=== PATIENT | female | born 1995 | race Caucasian/White ===

== ENCOUNTER 2022-07-11 22:42 | Emergency (ER) | payer OTHER, MEDICAID, SELFPAY ==
[2022-07-11 22:43] VITALS: BP 141/91; PULSE 108; RESP 20; TEMP 36.3; O2SAT 100; BMI 24.8
[2022-07-11 22:58] VITALS: BP 141/91; PULSE 108; RESP 20; TEMP 36.3; O2SAT 97
--- NOTE | 2022-07-11 23:20 | RAD_ITS ---
EXAM: XR CHEST, 2 VIEWS CLINICAL INDICATION: cough, sob TECHNIQUE: Frontal and lateral views of the chest. This report was created using Video[employer] report generation technology. COMPARISON: None. FINDINGS: LUNGS AND PLEURAL SPACES: Mild patchy infiltrate with air bronchograms noted within the retrocardiac portion of the left lower lobe, as noted on the frontal view of the chest, consistent with pneumonia. No acute infiltrates on the right. No pneumothorax. No effusion. Lungs are not hyperinflated. HEART: Unremarkable. Cardiac silhouette not enlarged. Normal pulmonary vasculature. MEDIASTINUM: Central airways and mediastinal contour are unremarkable. Trachea is midline. BONES/JOINTS: No acute osseous abnormality. SOFT TISSUES: Unremarkable. RAD/Chest PA and Lateral IMPRESSION: Mild pneumonia within the retrocardiac portion of the left lower lobe. Electronically Signed: Derrick Westfall MD at 23:46 EDT ,
--- NOTE | 2022-07-11 23:23 | ED.VIS.DYS ---
HPI History of Present Illness Chief Complaint: Cough Informant: patient Onset/Context/Timing Onset: Days (4) Context: gradual and onset Timing: Intermittent (Dyspnea) Worsened by: Coughing Relieved by: Nothing Associated Symptoms cough, fever, sore throat, chills and yellow sputum Chest Pain: Positive for None Narrative Narrative: Patient has been ill for 4 days with fevers up to 101.2, productive cough, she feels some crackles in her chest when she is breathing and coughing. Episodes of dyspnea mostly associated with coughing. Currently on doxycycline which she has been taking for about the past 4 days due to cystitis symptoms after feeling an antibiotic before that. She states the dysuria and frequency are much better now that she is on the doxycycline. Health at home today for COVID and it was negative. She is vaccinated previously for COVID and influenza. She does not have asthma or any other pulmonary problems. [facility] Medical History ADHD Chronic heart failure Insomnia POTS (postural orthostatic tachycardia syndrome) Home Medications dextroamphetamine-amphetamine 10 mg tablet 10 mg PO DAILY 07/11/22 [History Last Taken Unknown] dextroamphetamine-amphetamine ER 30 mg 24hr capsule,extend release (Adderall XR) 30 mg PO DAILY 07/11/22 [History Last Taken Unknown] doxycycline hyclate 100 mg capsule 100 mg PO BID 07/11/22 [History Last Taken Unknown] lamotrigine 150 mg tablet 150 mg PO QHS 07/11/22 [History Last Taken Unknown] midodrine 5 mg tablet 5 mg PO TID PRN PRN Hypotension 07/11/22 [History Last Taken Unknown] norethindrone 0.5 mg-ethinyl estradiol 35 mcg tablet (Nortrel) tab 07/11/22 [History Last Taken Unknown] quetiapine 100 mg tablet 100 mg PO QHS 07/11/22 [History Last Taken Unknown] albuterol sulfate 90 mcg/actuation aerosol inhaler (Ventolin HFA) 1 - 2 puff inhalation Q4H PRN PRN Wheezing ##1 07/12/22 [Rx Last Taken Unknown] benzonatate 100 mg capsule 200 mg PO TID PRN PRN Cough #20 CAPSULES 07/12/22 [Rx Last Taken Unknown] cefdinir 300 mg capsule 300 mg PO BID #14 caps 07/12/22 [Rx Last Taken Unknown] Allergy/AdvReac Type Severity Reaction Status Date / Time adhesive tape [tape] Allergy Rash Verified 07/11/22 22:47 dexamethasone Allergy Other Verified 07/11/22 22:47 latex Allergy Hives Verified 07/11/22 22:47 Social History Smoking Status: Never smoker ROS ROS ED Constitutional Constitutional ED: Reports chills, fever(s) and malaise ENT ENT ED: Reports nasal congestion, rhinorrhea and sore throat; Denies ear pain Cardiovascular Cardiovascular: Denies chest pain, leg edema or palpitations Respiratory/Chest Respiratory/Chest: Reports cough, dyspnea and sputum Gastrointestinal Gastrointestinal: Denies abdominal pain, diarrhea, nausea or vomiting Genitourinary Genitourinary ED: Reports dysuria and urinary frequency; Denies hematuria Musculoskeletal Musculoskeletal: Denies myalgias or neck pain Integumentary Denies abscess or rash Neurologic Neurologic: Denies headache(s), paresthesias or weakness Psychiatric Psychiatric: Denies depression or suicidal thoughts Endocrine Endocrinology: Denies polydipsia or polyuria Allergic/Immunologic Allergic/Immunologic ED: Denies mouth swelling or tongue swelling EXAM Physical Exam Const Vital Signs: 07/11/22 22:43 07/11/22 22:58 07/11/22 22:58 Temperature 97.3 F L 97.3 F L Temperature Source Temporal Oral Pulse Rate 108 H 108 H Respiratory Rate 20 H 20 H Respiratory Effort Respiratory Depth Respiratory Pattern Blood Pressure 141/91 H 141/91 H Blood Pressure Mean 107 107 Pulse Ox 100 97 Oxygen Delivery Method Room Air Room Air Room Air 07/11/22 23:53 07/11/22 23:53 Temperature Temperature Source Pulse Rate 117 H Respiratory Rate 20 H 22 H Respiratory Effort Normal Non-Labored Short of Breath Respiratory Depth Normal Respiratory Pattern Normal Tachypnea Blood Pressure Blood Pressure Mean Pulse Ox 100 Oxygen Delivery Method Room Air Positive well nourished and well developed General Appearance ED: well developed and NAD HEENT Reports moist mucous membranes normocephalic and atraumatic Throat: Negative for posterior oropharynx abnormal Eyes PERRL and EOMs intact bilaterally Neck no lymphadenopathy, supple and no meningeal signs Resp normal respiratory effort Resp Narrative: Rales and rhonchi left base otherwise clear throughout. Conversive in full sentences. Cardio no murmurs Cardio Narrative: mild tachycardia Rate: regular rate Rhythm: regular rhythm GI non-tender and non-distended Neuro oriented x3, CN's II-XII intact bilaterally, no sensory deficits noted and gait normal Sensorium / Orientation: alert Motor Exam: strength 5/5 throughout Psych mental status grossly normal Skin no wounds Lesions: no lesions Rashes: no rashes MDM MDM MDM Narrative Medical decision making narrative: 2 view chest x-ray obtained, on my interpretation possibly mild early left lower lobe infiltrate, radiology in agreement with that. Clinically her exam is consistent with that. She is not hypoxic, and clinically is doing very well. Outpatient treatment is appropriate given all of that. Since she is on doxycycline, I think treating her with Levaquin would be appropriate, but may interact with her Seroquel and prolong her QT interval, therefore we will place her on a third-generation cephalosporin Omnicef. She was on cephalexin prior to the doxycycline. I advise taking measures to prevent antibiotic associated diarrhea, also prescribed albuterol inhaler and Tessalon perles. Diflucan contraindicated while on Seroquel because of liver metabolism issues and possibility of prolonging QT so I am not prescribing any more of that, she will need to treat topically if she develops a yeast infection. Radiography Diagnostic Testing: Clinical Impression(s) from Imaging Studies Chest X-Ray 07/11/22 23:20 IMPRESSION: Mild pneumonia within the retrocardiac portion of the left lower lobe. Electronically Signed: Derrick Westfall MD at 23:46 EDT , Discharge Plan Triage Chief Complaint: Cough ED Provider: Keyur Keith Dx/Rx/DC Orders Clinical Impression: Pneumonia Instructions: ED Pneumonia (Adult) Prescriptions: New cefdinir 300 mg capsule 300 mg PO BID Qty: 14 0RF benzonatate [benzonatate] 100 mg capsule 200 mg PO TID PRN PRN (Reason: Cough) Qty: 20 0RF albuterol sulfate [Ventolin HFA] 90 mcg/actuation HFA aerosol inhaler 1 - 2 puff inhalation Q4H PRN PRN (Reason: Wheezing) Qty: 1 0RF No Action lamotrigine 150 mg tablet 150 mg PO QHS doxycycline hyclate 100 mg capsule 100 mg PO BID Label Comments: TAKE 1 CAPSULE BY MOUTH EVERY 12 HOURS FOR 7 DAYS dextroamphetamine-amphetamine 10 mg tablet 10 mg PO DAILY midodrine 5 mg tablet 5 mg PO TID PRN PRN (Reason: Hypotension) Label Comments: TAKE 1 AND 1/2 TABLET BY MOUTH 3 TIMES A DAY quetiapine 100 mg tablet 100 mg PO QHS dextroamphetamine-amphetamine [Adderall XR] 30 mg capsule,extended release 24hr 30 mg PO DAILY Label Comments: TAKE 1 CAPSULE BY MOUTH EVERY DAY IN THE MORNING Nortrel 0.5/35 (28) 0.5-35 mg-mcg tablet Label Comments: TAKE 1 TABLET BY MOUTH EVERY DAY TAKE CONTINUOISLY Referrals: Doctor,Your [Non-Staff] - 3-5 Days if not improving Activity Restrictions/Additional Instructions: Eat yogurt and/or take a probiotic daily for the next 10 days to help prevent antibiotic associated diarrhea Disposition Disposition: Home, Self Care
[2022-07-11 23:53] VITALS: PULSE 117; RESP 20; RESP 22; O2SAT 100
[2022-07-11] MEDS: Ipratropium/Albuterol Sulfate 3 ML AMPUL.NEB INHALATION (23:53)
== END 2022-07-12 00:47 | disposition home or self-care (01) ==
LOC: ED 07-12 00:35
PROVIDERS: Emergency Provider Emergency Medicine; Visit Provider Emergency Medicine
DX: J18.9 Pneumonia, unspecified organism (principal); I50.9 Heart failure, unspecified; F90.9 Attention-deficit hyperactivity disorder, unspecified type; Z79.899 Other long term (current) drug therapy
CPT/HCPCS: 71046; 94640; 99252; 99282; G0463

== ENCOUNTER 2022-08-22 10:19 | Emergency (ER) | payer OTHER, MEDICAID, SELFPAY ==
[2022-08-22 10:20] VITALS: BP 109/68; PULSE 110; RESP 18; TEMP 36.7; O2SAT 98; BMI 22.6
[2022-08-22] MEDS: 0.9% Normal Saline 1,000 ML 1000 ML IV (10:52)
[2022-08-22] MEDS: Ondansetron 4 MG/2 ML Vial IV (10:52)
[2022-08-22] MEDS: Ketorolac 15 MG/ML Vial IV (10:52)
[2022-08-22 11:12] LABS: Absolute Lymphocyte Count 1.05 X10^3/uL (0.83-4.51); Absolute Neutrophil Count 6.9 X10^3/uL (2.0-7.7); Basophil# 0.01 X10^3/uL; Basophil% 0.1 % (0-1); Eosinophil# 0.02 X10^3/uL; Eosinophils% 0.2 % (0-5); Hematocrit 36.2 % (37-47); Hemoglobin 11.7 g/dL (12.0-15.0); Lymphocyte # 1.05 X10^3/ul (0.83-4.51); Lymphocyte % 11.5 % (19-41); Mean Corp Hgb Conc 32.3 g/dL (32-36); Mean Corpuscular Hgb 29.1 pg (27.0-32.0); Mean Platelet Vol. 9.3 fl (6.2-12.0); Monocyte# 1.16 X10^3/uL; Monocyte% 12.6 % (0-10); NRBC Flagged by Analyzer 0 % (0-5); Neutrophil % 75.3 % (47-70); Platelet Count 280 K/mm3 (150-450); RBC Distribution Width CV 12.4 % (11.6-14.6); RBC Distribution Width SD 41.1 fl (35.1-43.9); Red Blood Count 4.02 M/mm3 (4.2-5.4); White Blood Count 9.2 K/mm3 (4.4-11.0)
--- NOTE | 2022-08-22 11:15 | RAD_ITS ---
STUDY: X-RAY CHEST REASON FOR EXAM: Female, 27 years old. Fever and chills. TECHNIQUE: Single AP portable view of the chest. COMPARISON: Comparison is made with prior study dated July 11, 2022. FINDINGS: The lungs are clear and expanded. There is no demonstrated pleural abnormality. Normal size heart. Normal mediastinum and melanie. Normal visualized pulmonary arteries. Normal visualized aortic arch and descending thoracic aorta. Normal visualized thoracic spine. Normal visualized ribs, clavicles, and shoulders. There is no demonstrated abnormality of the visualized soft tissue structures of the upper abdomen. RAD/Chest 1 View (Portable) IMPRESSION: Normal x-ray examination of the chest. Electronically Signed: Immanuel Dyer MD at 12:18 EDT ,
[2022-08-22 11:26] LABS: Anion Gap 8 (5-15); BUN 6 mg/dL (7-18); BUN/Creat Ratio 7.4 RATIO (10-20); Calcium,Total 8.7 mg/dL (8.5-10.1); Chloride 105 mmol/L (98-107); Creatinine, Serum 0.82 mg/dL (0.55-1.02); EST Glomerular Filtration Rate 89 mL/min (>60); Est Glom Filt Rate - Afr Amer 108 mL/min (>60); Estimated Creatinine Clearance 96.47 ml/min; Glucose 104 mg/dL (74-106); Potassium 3.5 mmol/L (3.5-5.1); Sodium Level 138 mmol/L (136-145)
[2022-08-22 11:39] LABS: Mucous, Urine 0 SEEN /hpf (<or=2+)
[2022-08-22 11:47] LABS: Color, Urine Yellow (Yellow); Glucose, Dipstick Normal (Normal); Ketone-Dipstick Negative (Negative); Leukocyte Esterase-Dipstick 500 /ul (Negative); Nitrite-Dipstick Negative (Negative); Occult Blood-Urine 150 /ul (Negative); Protein-Dipstick 30 mg/dl (Negative); Urine Bilirubin Dipstick Negative (Negative); Urine Clarity Sl. Cloudy (Clear); Urine Urobilinogen Normal (Normal)
[2022-08-22 11:57] LABS: Bacteria 1+ /hpf (None Seen); Red Blood Cells-Urine 10-25 SEEN /hpf (0-5); Squamous Epithelial Cells - UA 0-5 SEEN /hpf (5-10); White Blood Cells 25-50 SEEN /hpf (0-5)
[2022-08-22 11:59] LABS: Internal QC Validated? YES +Cl - CLEAR BKGD; Pregnancy, Urine Negative Negative
--- NOTE | 2022-08-22 13:22 | EX.ED.DYSGE1 ---
HPI History of Present Illness Chief Complaint: Fever Narrative Narrative: 27-year-old female presenting with fever. She states she has chills and body aches but does not have a cough or shortness of breath. No urinary or vaginal complaints. No abdominal pain, diarrhea. She states she has a history of being admitted for sepsis without any identifiable source. She states that that point a few years ago she had a 26,000 white count and a fever. Patient was admitted to [facility] for several days. Patient was seen recently in the last month for a cough and had pneumonia. She states she did not feel as bad as she does today. Then she had a cough and today she does not. 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 [facility] Medical History ADHD Chronic heart failure Insomnia POTS (postural orthostatic tachycardia syndrome) Home Medications dextroamphetamine-amphetamine ER 30 mg 24hr capsule,extend release (Adderall XR) 30 mg PO DAILY 07/11/22 [History Last Taken Unknown] doxycycline hyclate 100 mg capsule 100 mg PO BID 07/11/22 [History Last Taken Unknown] lamotrigine 150 mg tablet 150 mg PO QHS 07/11/22 [History Last Taken Unknown] midodrine 5 mg tablet 10 mg PO TID PRN PRN Hypotension 07/11/22 [History Last Taken Unknown] norethindrone 0.5 mg-ethinyl estradiol 35 mcg tablet (Nortrel) tab 07/11/22 [History Last Taken Unknown] quetiapine 100 mg tablet 100 mg PO QHS 07/11/22 [History Last Taken Unknown] albuterol sulfate 90 mcg/actuation aerosol inhaler (Ventolin HFA) 1 - 2 puff inhalation Q4H PRN PRN Wheezing ##1 07/12/22 [Rx Last Taken Unknown] benzonatate 100 mg capsule 200 mg PO TID PRN PRN Cough #20 CAPSULES 07/12/22 [Rx Last Taken Unknown] cefdinir 300 mg capsule 300 mg PO BID #14 caps 07/12/22 [Rx Last Taken Unknown] cephalexin 500 mg capsule 500 mg PO Q12 #14 CAPSULES 08/22/22 [Rx Last Taken Unknown] Allergy/AdvReac Type Severity Reaction Status Date / Time adhesive tape [tape] Allergy Rash Verified 08/22/22 10:22 dexamethasone Allergy Other Verified 08/22/22 10:22 latex Allergy Hives Verified 08/22/22 10:22 Social History Smoking Status: Never smoker ROS ROS ED Constitutional Constitutional ED: Reports chills and fever(s) Eyes Eyes: Denies change in vision or diplopia ENT ENT ED: Denies rhinorrhea or sore throat Cardiovascular Cardiovascular: Denies chest pain or palpitations Respiratory/Chest Respiratory/Chest: Denies cough or dyspnea Gastrointestinal Gastrointestinal: Denies abdominal pain, nausea or vomiting Genitourinary Genitourinary ED: Denies dysuria or hematuria Musculoskeletal Musculoskeletal: Reports myalgias; Denies arthralgias Integumentary Denies abscess or Abrasions Neurologic Neurologic: Reports headache(s); Denies paresthesias or weakness Psychiatric Psychiatric: Denies anxiety or depression EXAM Physical Exam Const Vital Signs: 08/22/22 10:20 08/22/22 11:15 08/22/22 14:43 Temperature 98.1 F Temperature Source Oral Pulse Rate 110 H 100 Respiratory Rate 18 16 Respiratory Pattern Normal Blood Pressure 109/68 106/70 Blood Pressure Mean 81 82 Pulse Ox 98 99 Oxygen Delivery Method Room Air Room Air Positive well nourished General Appearance ED: NAD; Negative for pallor HEENT Reports moist mucous membranes Eyes PERRL and EOMs intact bilaterally Resp normal respiratory effort and clear to auscultation bilaterally Cardio regular rate and regular rhythm GI normal to inspection, nondistended, normoactive bowel sounds Extremity normal to inspection Neuro oriented x3 and CN's II-XII intact bilaterally Psych mental status grossly normal Skin no rashes or lesions noted General Skin Exam: Negative for jaundice or pallor MDM MDM MDM Narrative Medical decision making narrative: Patient presenting with concern for sepsis given her fever of 104 at home. This has been ongoing for a few days. It is most likely that this will be viral in nature and I did order a rapid COVID. CBC to assess white blood cell count, hemoglobin, platelets, differential. BMP to assess renal function, electrolytes. Urinalysis to assess for UTI. Patient medicated with Zofran and Toradol and given a liter of normal saline. CBC returned with a normal white blood cell count of 9.2. Hemoglobin stable 11.7. Hematocrit 36.2. Platelets normal at 280. Renal function and electrolytes within normal limits. Urinalysis inconsistent for infection. Patient does not have any urinary symptoms either. Chest x-ray was obtained to assess for pneumonia and on my interpretation there is no acute cardiopulmonary process. The radiologist interprets this and agrees. Evaluated at 1:50 PM. She is doing well. Discussed her lab work with her and felt this is something that is most likely viral. We are still waiting for COVID and influenza swab. Patient on reevaluation is doing well. COVID and influenza are negative. Patient states she logged in on the hospital portal and saw her urinalysis and she is concerned she has a UTI. She states that she started developing burning with urination while here in the hospital. I counseled her that I will put her on Keflex and send a urine culture. At this point I feel she stable for discharge home. I think she is most likely got a viral syndrome. Impression: 1. Febrile illness 2. UTI Lab Data Labs: Laboratory Results - last 24 hr 08/22/22 08/22/22 08/22/22 10:50 10:50 11:25 WBC 9.2 RBC 4.02 L Hgb 11.7 L Hct 36.2 L MCV 90.0 MCH 29.1 MCHC 32.3 RDW Std Deviation 41.1 RDW Coeff of Diamante 12.4 Plt Count 280 MPV 9.3 Immature Gran % (Auto) 0.300 Neut % (Auto) 75.3 H Lymph % (Auto) 11.5 L Canyon % (Auto) 12.6 H Eos % (Auto) 0.2 Baso % (Auto) 0.1 Absolute Neuts (auto) 6.9 Absolute Lymphs (auto) 1.05 Nucleated RBC % 0 Sodium 138 Potassium 3.5 Chloride 105 Carbon Dioxide 25.0 Anion Gap 8 BUN 6 L Creatinine 0.82 Estim Creat Clear Calc 96.47 Est GFR (MDRD) Af Amer 108 Est GFR (MDRD) Non-Af 89 BUN/Creatinine Ratio 7.4 L Glucose 104 Calcium 8.7 Urine Color Yellow Urine Clarity Sl. Cloudy Urine pH 6.0 Ur Specific [place] 1.020 Urine Protein 30 H Urine Glucose (UA) Normal Urine Ketones Negative Urine Occult Blood 150 H Urine Nitrite Negative Urine Bilirubin Negative Urine Urobilinogen Normal Ur Leukocyte Esterase 500 H Urine RBC 10-25 SEEN Urine WBC 25-50 SEEN Ur Squamous Epith Cells 0-5 SEEN Urine Bacteria 1+ Urine Mucus 0 SEEN Urine Test Negative Discharge Plan Triage Chief Complaint: Fever ED Provider: Lee Medina Dx/Rx/DC Orders Instructions: ED FUO Adult Prescriptions: New cephalexin 500 mg capsule 500 mg PO Q12 Qty: 14 0RF No Action lamotrigine 150 mg tablet 150 mg PO QHS doxycycline hyclate 100 mg capsule 100 mg PO BID Label Comments: TAKE 1 CAPSULE BY MOUTH EVERY 12 HOURS FOR 7 DAYS midodrine 5 mg tablet 10 mg PO TID PRN PRN (Reason: Hypotension) Label Comments: TAKE 1 AND 1/2 TABLET BY MOUTH 3 TIMES A DAY quetiapine 100 mg tablet 100 mg PO QHS dextroamphetamine-amphetamine [Adderall XR] 30 mg capsule,extended release 24hr 30 mg PO DAILY Label Comments: TAKE 1 CAPSULE BY MOUTH EVERY DAY IN THE MORNING Nortrel 0.5/35 (28) 0.5-35 mg-mcg tablet Label Comments: TAKE 1 TABLET BY MOUTH EVERY DAY TAKE CONTINUOISLY cefdinir 300 mg capsule 300 mg PO BID Qty: 14 0RF benzonatate [benzonatate] 100 mg capsule 200 mg PO TID PRN PRN (Reason: Cough) Qty: 20 0RF albuterol sulfate [Ventolin HFA] 90 mcg/actuation HFA aerosol inhaler 1 - 2 puff inhalation Q4H PRN PRN (Reason: Wheezing) Qty: 1 0RF Primary Care Provider: REHANA PENALOZA Referrals: REHANA PENALOZA [Other] Disposition Disposition: Home, Self Care
[2022-08-22 14:43] VITALS: BP 106/70; PULSE 100; RESP 16; O2SAT 99
[2022-08-22] MEDS: Cephalexin 250 MG Capsule 500 MG PO (15:06)
== END 2022-08-22 15:11 | disposition home or self-care (01) ==
PROVIDERS: Emergency Provider Student in an Organized Health Care Education/Training Program; Visit Provider Student in an Organized Health Care Education/Training Program
DX: N39.0 Urinary tract infection, site not specified (principal); I50.9 Heart failure, unspecified; R50.9 Fever, unspecified
CPT/HCPCS: 71045; 80048; 81001; 81025; 85025; 87428; 96361; 96374; 96375; 99284; J7030; J2405

== ENCOUNTER 2022-09-16 22:03 | Emergency (ER) | payer OTHER, MEDICAID, SELFPAY ==
[2022-09-16 22:04] VITALS: BP 120/89; PULSE 86; RESP 16; TEMP 36.8; O2SAT 98; BMI 23.8
[2022-09-16 22:12] VITALS: TEMP 36.8; O2SAT 98
--- NOTE | 2022-09-17 00:10 | CT_ITS ---
INDICATION: Lumbar radiculopathy EXAMINATION: CT LUMBAR SPINE - CT Spine Lumbar W/O Contrast Injection TECHNIQUE: Helically acquired images were obtained of the lumbar spine. 2D reformats were reviewed. A radiation dose optimization technique was used for this scan. IV Contrast dosage and agent: None. RADIATION DOSAGE (If Supplied By Facility): CTDIvol = ( 24.21 ) mGy, DLP = ( 691.26 ) mGycm COMPARISON: Not applicable FINDINGS: VERTEBRAE: No fracture or traumatic subluxation. No discrete lytic or blastic abnormality observed. Normal alignment. DISCS and SPINAL CANAL: Minimal broad-based posterior disc bulge L3-4 with minimal spinal canal and bilateral neural foraminal narrowing. Small left central predominant broad-based posterior disc protrusion L4-5 with mild spinal canal and bilateral neural foraminal stenosis with disc approaching the exiting L4 nerve roots in the foramen. . VISUALIZED ABDOMEN: Visualized abdominal aorta is not dilated. There is no retroperitoneal adenopathy. Large colonic stool burden. CT/Spine Lumbar without Contrast IMPRESSION: 1. Mild multilevel lower lumbar spondylosis with disc protrusion in close proximity to the exiting L4 nerve roots in the L4-5 neural foramina. No evidence of cord or cauda equina compression. MRI could further assess as clinically indicated. 2. No evidence of acute osseous injury. 3. Large colonic stool burden. Electronically Signed: Du Tovar MD at 2:20 EDT ,
--- NOTE | 2022-09-17 00:10 | CT_ITS ---
INDICATION: headache EXAMINATION: CT BRAIN - CT Head or Brain W/O Contrast Injection TECHNIQUE: Multiple axial images were obtained of the head without intravenous contrast. A radiation dose optimization technique was used for this scan. IV Contrast dosage and agent: None. COMPARISON: None FINDINGS: BRAIN PARENCHYMA: No intra- or extra-axial hemorrhage. No evidence of acute infarct. No intracranial mass or mass effect. Unremarkable white matter for age. There is preservation of the high/white matter interface. Posterior fossa structures are unremarkable. CSF SPACES: Cerebral volume appropriate for age. No hydrocephalus. Basal cisterns are patent. CALVARIUM, SKULL BASE, PARANASAL SINUSES AND MASTOID AIR CELLS: No acute osseous finding. Paransasal sinuses are clear. Mastoid air cells are clear. ORBITS: Both globes, extraocular muscles, optic nerves and retrobulbar fat appear unremarkable. ASPECTS Score for Acute Strokes: 10 CT/Brain/Head without Contrast IMPRESSION: No CT evidence of acute intracranial hemorrhage or injury. Electronically Signed: Du Tovar MD at 1:43 EDT ,
[2022-09-17] MEDS: Ketorolac 30 MG/ML Syringe IM (00:21)
[2022-09-17] MEDS: Orphenadrine 60 MG/2 ML Ampul IM (00:22)
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
[2022-09-17 03:18] VITALS: BP 124/64; PULSE 79; RESP 18; O2SAT 100
== END 2022-09-17 03:19 | disposition home or self-care (01) ==
PROVIDERS: Emergency Provider Emergency Medicine; Visit Provider Emergency Medicine
DX: S06.0X0A Concussion without loss of consciousness, initial encounter (principal); I50.9 Heart failure, unspecified; M47.26 Other spondylosis with radiculopathy, lumbar region; V89.2XXA Person injured in unspecified motor-vehicle accident, traffic, initial encounter
CPT/HCPCS: 70450; 72131; 96372; 99282